=== PATIENT | female | born 1980 | race African-American/Black ===

== ENCOUNTER 2017-02-03 13:22 | Emergency (ER) | payer SELFPAY ==
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
== END 2017-02-03 14:55 | disposition home or self-care (01) ==
LOC: ERS 13:22
DX: S16.1XXA Strain of muscle, fascia and tendon at neck level, initial encounter (principal); I10 Essential (primary) hypertension; V43.52XA Car driver injured in collision with other type car in traffic accident, initial encounter
CPT/HCPCS: 70450; 72125